=== PATIENT | female | born 1970 | race Hispanic/Latino ===

== ENCOUNTER 2022-11-04 19:51 | Emergency (ER) | payer SELFPAY ==
[2022-11-04] VITALS (10 sets, daily range): BP systolic 145–180; BP diastolic 82–101
[~2022-11-04] VITALS: Ht 170.2 cm; Wt 109.1 kg
[~2022-11-04 19:51] MED LIST: NAPROSYN500 MG PO; NO
[2022-11-04 22:09] LABS: BASO% 0.3 % (0-3); EOS% 0.3 % (0-8); HEMATOCRIT 39.5 % (37.0-47.0); HEMOGLOBIN 13.3 g/dl (12.0-16.0); IMMATURE GRANULOCYTES 0.1 % (0.0-5.0); MEAN CORPUSCULAR HGB 31.7 pG CALC (26.0-32.0); MEAN CORPUSCULAR HGB CONC 33.7 g/dL CAL (32.0-36.0); MONO% 10.3 % (2-13); NEUT# 6.14 thou/uL (2.00-7.15); RED BLOOD COUNT 4.2 mill/uL (4.20-5.60); RED CELL DISTRI WIDTH 13.7 % (11.5-15.5)
[2022-11-04 22:20] LABS: ALBUMIN 4.2 g/dL (3.2-5.0); ALKALINE PHOSPHATASE 77 u/l (38-126); ANION GAP 12 (6-22 (CALC)); BILIRUBIN, TOTAL 0.3 mg/dL (0.0-1.4); BUN 6 mg/dL (7-17); BUN/CREATININE RATIO 12 (12-20 (CALC)); CARBON DIOXIDE 28 mmol/l (22-30); CHLORIDE 102 mmol/l (95-108); CREATININE 0.6 mg/dL (0.5-1.0); GFR FOR AFR.AMER. > 60 ML/MIN (>=60 (CALC)); GFR OTHER RACES > 60 ML/MIN (>=60 (CALC)); POTASSIUM 3.5 mmol/l (3.5-5.1); SGOT/AST 29 u/l (14-36); SODIUM 138 mmol/l (137-146); TOTAL PROTEIN 8.4 g/dL (6.3-8.2)
[2022-11-05] VITALS (7 sets, daily range): BP systolic 135–168; BP diastolic 93–105
[2022-11-05] MEDS ORDERED: TAM75CAP PO (00:04)
== END 2022-11-05 02:10 | disposition home or self-care (01) | DRG 195 ==
LOC: ED 19:51
PROVIDERS: Emergency Medicine
DX: J10.1 Influenza due to other identified influenza virus with other respiratory manifestations (principal); Z20.822 Contact with and (suspected) exposure to COVID-19

== ENCOUNTER 2024-06-23 06:25 | Emergency (ER) | payer SELFPAY ==
[~2024-06-23] VITALS: Ht 172.7 cm; Wt 104.0 kg
[~2024-06-23 06:25] MED LIST changes: +TAM75CAP PO
[2024-06-23] MEDS ORDERED: ACETAMINOPHEN 500 MG TAB PO ONE (06:45)
[2024-06-23] MEDS ORDERED: Diph, Acellular Pertussis, Tet 0.5 ML/VIAL (Tdap) SDV IM ONE (06:45)
[2024-06-23] MEDS ORDERED: NEOMYCIN-BACITRACIN-POLYMYXIN 0.5 GM/PAK PAK TOP ONE (06:45)
[2024-06-23] MEDS ORDERED: traMADol HCL 50 MG/TAB PO ONE (06:45)
[2024-06-23] MEDS ORDERED: IBUPROFEN 600 MG/TAB PO ONE (06:45)
[2024-06-23 07:01] VITALS: BP 147/94
[2024-06-23 07:14] VITALS: BP 147/94
== END 2024-06-23 07:15 | disposition home or self-care (01) | DRG 605 ==
LOC: ED 06:25
PROC: 0HQNXZZ Repair Left Foot Skin, External Approach (ICD-10-PCS; principal; 2024-06-23)
DX: S91.112A Laceration without foreign body of left great toe without damage to nail, initial encounter (principal); S91.115A Laceration without foreign body of left lesser toe(s) without damage to nail, initial encounter; W25.XXXA Contact with sharp glass, initial encounter; Y92.009 Unspecified place in unspecified non-institutional (private) residence as the place of occurrence of the external cause

== ENCOUNTER 2024-07-04 16:52 | Emergency (ER) | payer SELFPAY ==
[2024-07-04] VITALS (9 sets, daily range): BP systolic 91–160; BP diastolic 63–85
[~2024-07-04] VITALS: Ht 172.7 cm; Wt 104.0 kg
[2024-07-04] MEDS ORDERED: KEFLEX500 MG PO (19:06)
[2024-07-04] MEDS ORDERED: LIDOcaine HCl 1% (Local Anesth.) 20 ML VIAL IM STA (19:07)
[2024-07-04] MEDS ORDERED: cefTRIAXone SODIUM 1 GM/VIAL SDV IM ONE (19:10)
== END 2024-07-04 20:00 | disposition home or self-care (01) | DRG 920 ==
LOC: ED 16:52
DX: T81.33XA Disruption of traumatic injury wound repair, initial encounter (principal); L03.116 Cellulitis of left lower limb; Y83.8 Other surgical procedures as the cause of abnormal reaction of the patient, or of later complication, without mention of misadventure at the time of the procedure